=== PATIENT | female | born 1960 | race Two or more races ===

== ENCOUNTER 2016-12-21 15:35 | Emergency (ER) | payer SELFPAY ==
[2016-12-21 15:45] VITALS: BP 99/60; PULSE 88; TEMP 98.6; BMI 29.8
[2016-12-21] MEDS ORDERED: ACETAMINOPHEN 325 MG TABLET (FP) PO ONE (17:49)
[2016-12-21] MEDS ORDERED: MAG HYDROX/AL HYDROX/SIMETH 30 ML UNIT-DOSE CUP PO ONE (17:49)
[2016-12-21] MEDS ORDERED: ONDANSETRON 4 MG/2 ML VIAL IVPB ONE (17:49)
[2016-12-21] MEDS ORDERED: SODIUM CHLORIDE 1,000 ML IV STA (17:49)
[2016-12-21] MEDS ORDERED: FAMOTIDINE 20 MG/50 ML IVPB 50 ML IVPB ONE ×2 (17:49→18:10)
[2016-12-21] MEDS ORDERED: LOPERAMIDE HCL 2 MG CAPSULE PO ONE (17:50)
[2016-12-21] MEDS ORDERED: ACETAMINOPHEN 325 MG TABLET (FP) ONE (18:09)
[2016-12-21] MEDS ORDERED: MAG HYDROX/AL HYDROX/SIMETH 30 ML UNIT-DOSE CUP ONE (18:10)
[2016-12-21] MEDS ORDERED: ONDANSETRON 4 MG/2 ML VIAL ONE (18:10)
[2016-12-21] MEDS ORDERED: LOPERAMIDE HCL 2 MG CAPSULE ONE (18:10)
--- NOTE | 2016-12-21 18:11 | PDOC ---
History of Present Illness - General History Source: Patient Exam Limitations: No Limitations - History of Present Illness Initial Comments: 12/21/16 18:23 The patient is a 56 year old female presenting with her family, with a significant past medical history of hypothyroidism, GERD and migraine/headaches , who presents to the emergency department with fever, abdominal pain and diarrhea for the last couple of days. She reports that her abdominal pain is localized in the epigastric region, ranging from mild to moderate, without radiation or modifying factors. She states that her fever has been as high as 101.0 degrees F. The patient denies chest pain, shortness of breath, headache and dizziness. Denies chills, nausea, vomit and constipation. Denies dysuria, frequency, urgency and hematuria. Allergies: None Past surgical history: None reported Social history: No alcohol, tobacco or drug use reported <Nirav Rosenberg - Last Filed: 12/21/16 18:20> <Juaquin Cuevas - Last Filed: 12/21/16 19:45> - General Chief Complaint: Pain Stated Complaint: ABD PAIN Time Seen by Provider: 12/21/16 17:40 Past History <Nirav Rosenberg - Last Filed: 12/21/16 18:20> - Past Medical History Anemia: No Diabetes: No GI Disorders: Yes (GASTRITIS) HTN: No Hypercholesterolemia: No Seizures: Yes (HYPO) - Surgical History Abdominal Surgery: No - Family Disease History Family Disease History: Other: Mother (Migraines) - Psycho/Social/Smoking Cessation Hx Anxiety: No Suicidal Ideation: No Smoking Status: No Smoking History: Never smoked Have you smoked in the past 12 months: No Number of Cigarettes Smoked Daily: 0 Information on smoking cessation initiated: No Hx Alcohol Use: No Drug/Substance Use Hx: No Substance Use Type: None <Juaquin Cuevas - Last Filed: 12/21/16 19:45> - Past Medical History Allergies/Adverse Reactions: Allergies Allergy/AdvReac Type Severity Reaction Status Date / Time No Known Allergies Allergy Verified 12/21/16 15:42 Home Medications: Ambulatory Orders Levothyroxine [Synthroid -] 88 mcg PO DAILY 03/25/15 Acetaminophen [Tylenol] 650 mg PO Q4H PRN #20 tablet 12/21/16 Loperamide HCl [Imodium -] 2 mg PO Q8H PRN #21 capsule 12/21/16 Mag Hydrox/Al Hydrox/Simeth [Mylanta Suspension -] 30 ml PO Q6H PRN #1 bottle Ondansetron HCl [Zofran] 4 mg PO Q6H PRN #12 tablet 12/21/16 Review of Systems - Review of Systems Able to Perform ROS?: Yes Comments:: 12/21/16 18:24 GENERAL/CONSTITUTIONAL: No fever or chills. No weakness. HEAD, EYES, EARS, NOSE AND THROAT: No change in vision. No ear pain or discharge. No sore throat. CARDIOVASCULAR: No chest pain or shortness of breath RESPIRATORY: No cough, wheezing, or hemoptysis. GASTROINTESTINAL: (+) Abdominal pain and diarrhea. No nausea, vomiting or constipation. GENITOURINARY: No dysuria, frequency, or change in urination. MUSCULOSKELETAL: No joint or muscle swelling or pain. No neck or back pain. SKIN: No rash NEUROLOGIC: No headache, vertigo, loss of consciousness, or change in strength/ sensation. ENDOCRINE: No increased thirst. No abnormal weight change HEMATOLOGIC/LYMPHATIC: No anemia, easy bleeding, or history of blood clots. ALLERGIC/IMMUNOLOGIC: No hives or skin allergy. <Nirav Rosenberg - Last Filed: 12/21/16 18:20> *Physical Exam - Vital Signs Last Vital Signs Temp Pulse Resp BP Pulse Ox 98.6 F 88 18 99/60 100 12/21/16 15:44 12/21/16 15:44 12/21/16 15:44 12/21/16 15:44 12/21/16 15:44 - Physical Exam Comments: 12/21/16 18:25 GENERAL: Awake, alert, and fully oriented, in no acute distress HEAD: No signs of trauma, normocephalic, atraumatic EYES: PERRLA, EOMI, sclera anicteric, conjunctiva clear ENT: Auricles normal inspection, hearing grossly normal, nares patent, oropharynx clear without exudates. (+) Dry mucosa NECK: Normal ROM, supple, no lymphadenopathy, JVD, or masses LUNGS: No distress, speaks full sentences, clear to auscultation bilaterally HEART: Regular rate and rhythm, normal S1 and S2, no murmurs, rubs or gallops, peripheral pulses normal and equal bilaterally. ABDOMEN: (+) Left upper quadrant tenderness to palpation. Soft, normoactive bowel sounds. No guarding, no rebound. No masses EXTREMITIES: Normal inspection, Normal range of motion, no edema. No clubbing or cyanosis. NEUROLOGICAL: Cranial nerves II through XII grossly intact. Normal speech, normal gait, no focal sensorimotor deficits SKIN: Warm, Dry, normal turgor, no rashes or lesions noted. <Nirav Rosenberg - Last Filed: 12/21/16 18:20> - Vital Signs Last Vital Signs Temp Pulse Resp BP Pulse Ox 98.6 F 88 18 99/60 100 12/21/16 15:44 12/21/16 15:44 12/21/16 15:44 12/21/16 15:44 12/21/16 15:44 <Juaquin Cuevas - Last Filed: 12/21/16 19:45> ED Treatment Course - LABORATORY CBC & Chemistry Diagram: 12/21/16 18:24 12/21/16 18:24 <Juaquin Cuevas - Last Filed: 12/21/16 19:45> Medical Decision Making - Medical Decision Making 12/21/16 18:53 A portion of this note was documented by scribe services under my direction. I have reviewed the details of the note, within reason, and agree with the documentation with the following case summary and management plan written by me. Patient treated in the ED. Nursing notes are reviewed and incorporated into the medical decision-making. Vital signs reviewed. Peripheral IV access obtained by the nurse, laboratory studies are drawn and sent, reviewed and interpreted by myself. Vital Signs Temp Pulse Resp BP Pulse Ox 98.6 F 88 18 99/60 100 12/21/16 15:44 12/21/16 15:44 12/21/16 15:44 12/21/16 15:44 12/21/16 15:44 56-year-old female with history of hypothyroid is a presents with GI symptoms. The patient has sick contacts were sister had a GI upset. Since yesterday, patient's been complaining about multiple episodes of diarrhea and left upper quadrant abdominal pain. Reports a low-grade temperature 101 degrees. Denies nausea, vomiting. I suspect the patient has gastritis. We'll obtain labs, give IV fluids and treat symptoms and reassess. If symptoms are better and workup is unremarkable, we'll discharge with PMD follow-up. 12/21/16 19:42 Pt reports feeling significantly better with the medications. 12/21/16 19:42 If labs are unremarkable, pt can be discharged. 12/21/16 19:45 Case signed out to DR. Mensah for further management and disposition. <Juaquin Cuevas - Last Filed: 12/21/16 19:45> *DC/Admit/Observation/Transfer - Attestations Scribe Attestion: 12/21/16 18:25 Documentation prepared by Nirav Rosenberg, acting as medical customer service representative for Juaquin Cuevas MD <Nirav Rosenberg - Last Filed: 12/21/16 18:20> - Discharge Dispostion Admit: No <Juaquin Cuevas - Last Filed: 12/21/16 19:45> Diagnosis at time of Disposition: Gastroenteritis - Discharge Dispostion Condition at time of disposition: Improved - Prescriptions Prescriptions: Loperamide HCl [Imodium -] 2 mg PO Q8H PRN #21 capsule PRN Reason: Diarrhea Mag Hydrox/Al Hydrox/Simeth [Mylanta Suspension -] 30 ml PO Q6H PRN #1 bottle PRN Reason: Abdominal Pain Acetaminophen [Tylenol] 650 mg PO Q4H PRN #20 tablet PRN Reason: Pain/fever Ondansetron HCl [Zofran] 4 mg PO Q6H PRN #12 tablet PRN Reason: Nausea - Patient Instructions Printed Discharge Instructions: DI for Viral Gastroenteritis -- Adult Additional Instructions: Please drink plenty of fluids and rest. Take the medications as prescribed. It may take several days before your symptoms improve. Follow up with your doctor. Print Language: KYRGYZ
[2016-12-21 18:35] LABS: BASOPHIL 0.3 % (0-2.0); EOSINOPHIL 0.5 % (0-4.5); MCH 29.9 pg (25.7-33.7); MCHC 33.9 g/dl (32.0-36.0); MEAN CELL VOLUME 88.2 fl (80-96); MEAN PLT VOLUME 10.5 fl (7.5-11.1); NEUTROPHILS 91.2 % (42.8-82.8); PLATELET COUNT 126 K/MM3 (134-434); WHITE BLOOD COUNT 9.2 K/mm3 (4.0-10.0)
[2016-12-21 21:01] LABS: URINE APPEARANCE CLEAR; URINE BILIRUBIN NEGATIVE (NEGATIVE); URINE BLOOD 2+ (NEGATIVE); URINE COLOR DKYELLOW; URINE GLUCOSE (UA) NEGATIVE (NEGATIVE); URINE KETONE NEGATIVE (NEGATIVE); URINE LEUK ESTERASE TRACE (NEGATIVE); URINE NITRITE NEGATIVE (NEGATIVE); URINE PROTEIN 1+ (NEGATIVE); URINE UROBILINOGEN NEGATIVE E.U./dl (0.2-1.0)
[2016-12-21 21:06] LABS: GRANULAR CASTS 5 /lpf; URINE HYALINE CAST 134 /lpf; URINE MUCUS MANY; URINE RBC 7 /hpf (0-3); URINE WBC 7 /hpf (3-5)
[2016-12-21] MEDS ORDERED: KETOROLAC TROMETHAMINE 30 MG/1 ML VIAL IVPUSH ONE (22:26)
[2016-12-21] MEDS ORDERED: KETOROLAC TROMETHAMINE 30 MG/1 ML VIAL ONE (22:27)
[2016-12-21 23:21] LABS: ALBUMIN 4.1 g/dl (3.4-5.0); ANION GAP 14 (8-16); CALCIUM 8.5 mg/dL (8.5-10.1); CO2 18 mmol/L (21-32); GLUCOSE,RANDOM 146 mg/dL (74-106)
[2016-12-21 23:24] LABS: ALK PHOS 93 U/L (45-117); BILIRUBIN,TOTAL 0.8 mg/dL (0.2-1.0); COCKROFT - GAULT 87.7795; CREATININE 0.8 mg/dL (0.55-1.02); SGOT/AST 54 U/L (15-37); SGPT/ALT 87 U/L (12-78); TOT PROT 7.7 g/dl (6.4-8.2)
--- NOTE | 2016-12-22 02:40 | PDOC ---
*Physical Exam - Vital Signs Last Vital Signs Temp Pulse Resp BP Pulse Ox 98.6 F 88 18 99/60 100 12/21/16 15:44 12/21/16 15:44 12/21/16 15:44 12/21/16 15:44 12/21/16 15:44 <LewNirav - Last Filed: 12/22/16 02:39> - Vital Signs Last Vital Signs Temp Pulse Resp BP Pulse Ox 98.6 F 88 18 99/60 100 12/21/16 15:44 12/21/16 15:44 12/21/16 15:44 12/21/16 15:44 12/21/16 15:44 <Pily Williamson - Last Filed: 12/22/16 02:41> ED Treatment Course - LABORATORY CBC & Chemistry Diagram: 12/21/16 18:24 12/21/16 20:52 - ADDITIONAL ORDERS Additional order review: Laboratory Results 12/21/16 12/21/16 12/21/16 20:54 20:52 18:24 Sodium 140 Cancelled Potassium 4.0 Cancelled Chloride 108 H Cancelled Carbon Dioxide 18 L D Cancelled Anion Gap 14 Cancelled BUN 19 H D Cancelled Creatinine 0.8 Cancelled Creat Clearance w eGFR > 60 Cancelled Random Glucose 146 H Cancelled Calcium 8.5 Cancelled Total Bilirubin 0.8 D Cancelled AST 54 H Cancelled ALT 87 H Cancelled Alkaline Phosphatase 93 Cancelled Total Protein 7.7 Cancelled Albumin 4.1 Cancelled Lipase 174 Cancelled Urine Color Dkyellow Urine Appearance Clear Urine pH 5.0 D Ur Specific [place] 1.025 Urine Protein 1+ H Urine Glucose (UA) Negative Urine Ketones Negative Urine Blood 2+ H Urine Nitrite Negative Urine Bilirubin Negative Urine Urobilinogen Negative Ur Leukocyte Esterase Trace H Urine RBC 7 Urine WBC 7 Ur Epithelial Cells Rare Hyaline Casts 134 Granular Casts 5 Urine Mucus Many 12/21/16 18:24 RBC 5.09 MCV 88.2 MCHC 33.9 RDW 13.0 MPV 10.5 Neutrophils % 91.2 H D Lymphocytes % 4.2 L D Monocytes % 3.8 Eosinophils % 0.5 Basophils % 0.3 - RADIOLOGY Radiology Studies Ordered: Category Date Time Status ABDOMEN US -LIMITED [US] Stat Ultrasound 12/22/16 23:48 Taken - Medications Given in the ED: ED Medications Discontinued Medications Generic Name Dose Route Start Last Admin Trade Name Trin[place] PRN Reason Stop Dose Admin Acetaminophen 650 mg 12/21/16 17:49 12/21/16 18:25 Tylenol - PO 12/21/16 17:50 650 mg ONCE ONE Administration Al Hydroxide/Mg Hydroxide 30 ml 12/21/16 17:49 12/21/16 18:25 Mylanta Oral Suspension - PO 12/21/16 17:50 30 ml ONCE ONE Administration Famotidine/Sodium Chloride 50 mls @ 100 mls/hr 12/21/16 17:49 12/21/16 18:25 Pepcid 20 Mg Premixed Ivpb - IVPB 12/21/16 18:18 100 mls/hr ONCE ONE Administration Sodium Chloride 1,000 mls @ 1,000 mls/hr 12/21/16 17:49 12/21/16 18:25 Normal Saline - IV 12/21/16 18:48 1,000 mls/hr ASDIR STA Administration Ketorolac Tromethamine 30 mg 12/21/16 22:26 12/21/16 22:39 Toradol Injection - IVPUSH 12/21/16 22:27 30 mg ONCE ONE Administration Loperamide HCl 4 mg 12/21/16 17:50 12/21/16 18:25 Imodium - PO 12/21/16 17:51 4 mg ONCE ONE Administration Ondansetron HCl 4 mg 12/21/16 17:49 12/21/16 18:25 Zofran Injection IVPB 12/21/16 17:50 4 mg ONCE ONE Administration <Nirav Mensah - Last Filed: 12/22/16 02:39> - LABORATORY CBC & Chemistry Diagram: 12/21/16 18:24 12/21/16 20:52 - ADDITIONAL ORDERS Additional order review: Laboratory Results 12/21/16 12/21/16 12/21/16 20:54 20:52 18:24 Sodium 140 Cancelled Potassium 4.0 Cancelled Chloride 108 H Cancelled Carbon Dioxide 18 L D Cancelled Anion Gap 14 Cancelled BUN 19 H D Cancelled Creatinine 0.8 Cancelled Creat Clearance w eGFR > 60 Cancelled Random Glucose 146 H Cancelled Calcium 8.5 Cancelled Total Bilirubin 0.8 D Cancelled AST 54 H Cancelled ALT 87 H Cancelled Alkaline Phosphatase 93 Cancelled Total Protein 7.7 Cancelled Albumin 4.1 Cancelled Lipase 174 Cancelled Urine Color Dkyellow Urine Appearance Clear Urine pH 5.0 D Ur Specific [place] 1.025 Urine Protein 1+ H Urine Glucose (UA) Negative Urine Ketones Negative Urine Blood 2+ H Urine Nitrite Negative Urine Bilirubin Negative Urine Urobilinogen Negative Ur Leukocyte Esterase Trace H Urine RBC 7 Urine WBC 7 Ur Epithelial Cells Rare Hyaline Casts 134 Granular Casts 5 Urine Mucus Many 12/21/16 18:24 RBC 5.09 MCV 88.2 MCHC 33.9 RDW 13.0 MPV 10.5 Neutrophils % 91.2 H D Lymphocytes % 4.2 L D Monocytes % 3.8 Eosinophils % 0.5 Basophils % 0.3 - RADIOLOGY Radiograph Interpretation: 12/22/16 02:41 EXAM: Ultrasound abdomen limited, right upper quadrant Reviewed by Imaging vehicle fuel systems converter: FINDINGS: The liver is fatty, without mass or biliary duct dilation. The gallbladder is normal. The CBD is not dilated and measures4 millimeters in diameter. Right kidney measures 10.2centimeters in length and is unremarkable. The visualized aorta and IVC are normal. Pancreas is mostly obscured, but appears grossly normal. IMPRESSION: Fatty liver. - Medications Given in the ED: ED Medications Discontinued Medications Generic Name Dose Route Start Last Admin Trade Name Freq PRN Reason Stop Dose Admin Acetaminophen 650 mg 12/21/16 17:49 12/21/16 18:25 Tylenol - PO 12/21/16 17:50 650 mg ONCE ONE Administration Al Hydroxide/Mg Hydroxide 30 ml 12/21/16 17:49 12/21/16 18:25 Mylanta Oral Suspension - PO 12/21/16 17:50 30 ml ONCE ONE Administration Famotidine/Sodium Chloride 50 mls @ 100 mls/hr 12/21/16 17:49 12/21/16 18:25 Pepcid 20 Mg Premixed Ivpb - IVPB 12/21/16 18:18 100 mls/hr ONCE ONE Administration Sodium Chloride 1,000 mls @ 1,000 mls/hr 12/21/16 17:49 12/21/16 18:25 Normal Saline - IV 12/21/16 18:48 1,000 mls/hr ASDIR STA Administration Ketorolac Tromethamine 30 mg 12/21/16 22:26 12/21/16 22:39 Toradol Injection - IVPUSH 12/21/16 22:27 30 mg ONCE ONE Administration Loperamide HCl 4 mg 12/21/16 17:50 12/21/16 18:25 Imodium - PO 12/21/16 17:51 4 mg ONCE ONE Administration Ondansetron HCl 4 mg 12/21/16 17:49 12/21/16 18:25 Zofran Injection IVPB 12/21/16 17:50 4 mg ONCE ONE Administration <Pily Williamson - Last Filed: 12/22/16 02:41> *DC/Admit/Observation/Transfer - Discharge Dispostion Admit: No <Nirav Mensah - Last Filed: 12/22/16 02:39> <Pily Williamson - Last Filed: 12/22/16 02:41> Diagnosis at time of Disposition: Gastroenteritis - Discharge Dispostion Disposition: HOME Condition at time of disposition: Improved - Prescriptions Prescriptions: Loperamide HCl [Imodium -] 2 mg PO Q8H PRN #21 capsule PRN Reason: Diarrhea Mag Hydrox/Al Hydrox/Simeth [Mylanta Suspension -] 30 ml PO Q6H PRN #1 bottle PRN Reason: Abdominal Pain Acetaminophen [Tylenol] 650 mg PO Q4H PRN #20 tablet PRN Reason: Pain/fever Ondansetron HCl [Zofran] 4 mg PO Q6H PRN #12 tablet PRN Reason: Nausea - Referrals - Patient Instructions Printed Discharge Instructions: DI for Viral Gastroenteritis -- Adult Additional Instructions: Please drink plenty of fluids and rest. Take the medications as prescribed. It may take several days before your symptoms improve. Follow up with your doctor. Print Language: NORWEGI[place] - Post Discharge Activity
--- NOTE | 2016-12-24 15:42 | PDOC ---
Patient Follow-up (Call Back) - Post ED Follow - Up Condition at time of discharge: Improved Disposition at time of original discharge: HOME Reason for Call Back: Abnwl. Microbiology (urine culture + for streptococcus bovis sensitive to levaquin 250 mg daily x 3 days, left message for pt. to call here misael)
== END 2016-12-22 03:15 | disposition home or self-care (01) ==
LOC: JER 15:35
PROC: 3E0333Z Introduction of Anti-inflammatory into Peripheral Vein, Percutaneous Approach (ICD-10-PCS; principal; 2016-12-21)
PROC: 3E033GC Introduction of Other Therapeutic Substance into Peripheral Vein, Percutaneous Approach (ICD-10-PCS; 2016-12-21)
DX: K52.9 Noninfective gastroenteritis and colitis, unspecified (principal); G43.909 Migraine, unspecified, not intractable, without status migrainosus; K21.9 Gastro-esophageal reflux disease without esophagitis; E03.9 Hypothyroidism, unspecified
CPT/HCPCS: 36415; 76705-TC; 80053; 81003; 81015; 83690; 85025; 87086; 87186; 99282-25

== ENCOUNTER 2018-04-04 11:12 | Emergency (ER) | payer SELFPAY ==
[2018-04-04 11:21] VITALS: BMI 27.3
--- NOTE | 2018-04-04 11:56 | PDOC ---
History of Present Illness - General History Source: Patient Exam Limitations: No Limitations <Bhaskar Pablo - Last Filed: 04/04/18 13:05> - History of Present Illness Initial Comments: The patient is a 57-year-old Yi-speaking female with a PMHx of newly diagnosed diabetes, migraines, hypothyroidism, hypercholesterolemia, and GERD, who presents with a right-sided headache, chest pressure, and shortness of breath. The patient states that she had a right-sided headache after an argument with her daughter. She called her PCP who referred to to the ED since the offices are closed for the holiday. She states that her headache began 3 days ago and describes it as as right-sided, gradual onset, rates pain 10/10. She states that she has had similar headaches in the past and states that she usually gets them after an argument or some other stressor. She states that she usually takes acetaminophen for her migraines but did not take any today. She took some Motrin yesterday with initial relief but states that the pain came back after the medicine wore off. She also endorses 8 days of shortness of breath and chest pressure that she states is worse with deep inspiration and when laying down, rates pain 7/10. She also notes recent blurry vision and rhinorrhea. She states that she has been experiencing numbness and tingling for a couple of months. She states that today she took some Nexium for her acid reflux but has not taken her Metformin today for her newly diagnosed diabetes. She denies any nausea, vomiting, hemoptysis, fevers, diaphoresis, back pain, leg swelling, or dysuria, PCP: Dr. Chiki Richmond Surgical Hx: hysterectomy Allergies: NKDA <Paulina Snyder - Last Filed: 04/04/18 13:24> - General Chief Complaint: Headache Stated Complaint: SENT BY PCP,CHEST PAIN,BLOOD SUGAR Time Seen by Provider: 04/04/18 11:33 Past History - Past Medical History Anemia: No COPD: No Diabetes: Yes GI Disorders: Yes (GASTRITIS) HTN: No Hypercholesterolemia: No Seizures: Yes (HYPO) - Surgical History Abdominal Surgery: No - Family Disease History Family Disease History: Other: Mother (Migraines) - Suicide/Smoking/Psychosocial Hx Smoking Status: No Smoking History: Never smoked Have you smoked in the past 12 months: No Number of Cigarettes Smoked Daily: 0 Hx Alcohol Use: No Drug/Substance Use Hx: No Substance Use Type: None <BevBishopBhaskar - Last Filed: 04/04/18 13:05> <Paulina Snyder - Last Filed: 04/04/18 13:24> - Past Medical History Allergies/Adverse Reactions: Allergies Allergy/AdvReac Type Severity Reaction Status Date / Time No Known Allergies Allergy Verified 04/04/18 11:18 Home Medications: Ambulatory Orders Levothyroxine [Synthroid -] 88 mcg PO DAILY 03/25/15 Acetaminophen [Tylenol] 650 mg PO Q4H PRN #20 tablet 12/21/16 Review of Systems - Review of Systems Comments:: CONSTITUTIONAL: No reported: Fever, Chills, Diaphoresis, Generalized Weakness, Malaise, Loss of Appetite HEENT: Reported: Rhinnorhea No reported: Throat Pain, Throat Swelling, Difficulty Swallowing, Mouth Swelling , Ear Pain, Eye Pain, Visual Changes CARDIOVASCULAR: Reported: Pleuritic Chest Pressure No reported: Chest Pain, Syncope, Palpitations, Irregular Heart Rate, Lightheadedness, Peripheral Edema RESPIRATORY: Reported: Orthopnea, Shortness of Breath No reported: Cough, SOB with Exertion, Wheezing, Stridor, Hemoptysis GASTROINTESTINAL: No reported: Abdominal pain, Abdominal Distension, Nausea, Vomiting, Diarrhea, Constipation, Melena, Hematochezia GENITOURINARY: No reported: Dysuria, Frequency, Urgency, Hesitancy, Flank Pain, Genital Pain MUSCULOSKELETAL: No reported: Myalgia, Arthralgia, Joint Swelling, Back pain, SKIN: No reported: Rash, Itching, Pallor HEMEATOLOGIC/IMMUNOLOGIC: No reported: Easy Bleeding, Easy Bruising, Lymphadenopathy, Frequent infections ENDOCRINE: No reported: Unexplained Weight Gain, Unexplained Weight Loss, Heat Intolerance , Cold Intolerance NEUROLOGIC: Reported: Headache, Paresthesias in hands and feet. No reported: Focal Weakness, Vertigo, Lightheadedness, Unsteady Gait, Seizure, Mental Status Changes, Incontinence PSYCHIATRIC: No reported: Anxiety, Depression. <Paulina Snyder - Last Filed: 04/04/18 13:24> *Physical Exam - Vital Signs Last Vital Signs Temp Pulse Resp BP Pulse Ox 98.1 F 81 18 143/80 100 04/04/18 11:18 04/04/18 11:18 04/04/18 11:18 04/04/18 11:18 04/04/18 11:18 <Bhaskar Pablo - Last Filed: 04/04/18 13:05> - Vital Signs Last Vital Signs Temp Pulse Resp BP Pulse Ox 98.1 F 81 18 143/80 99 04/04/18 11:18 04/04/18 11:18 04/04/18 11:18 04/04/18 11:18 04/04/18 12:13 - Physical Exam Comments: GENERAL: The patient is awake, alert, and fully oriented, Nontoxic - in no acute distress. HEAD: Normocephalic, atraumatic. EYES: extraocular movements intact, sclera anicteric, conjunctiva clear. ENT: Normal voice, Moist mucous membranes. NECK: Normal range of motion, supple LUNGS: Breath sounds equal, clear to auscultation bilaterally. No wheezes, no rhonchi, no rales. HEART: Regular rate and rhythm, without murmur, rub or gallop. ABDOMEN: Soft, nontender, No guarding, no rebound.No CVA tenderness EXTREMITIES: Normal range of motion, no edema. No cyanosis. No erythema, or tenderness. NEUROLOGICAL: No facial assymetry, Normal speech, PSYCH: Normal mood, normal affect. SKIN: Warm, Dry, normal turgor. <Paulina Snyder - Last Filed: 04/04/18 13:24> ED Treatment Course - LABORATORY CBC & Chemistry Diagram: 04/04/18 12:00 04/04/18 12:00 <Bhaskar Pablo - Last Filed: 04/04/18 13:05> - LABORATORY CBC & Chemistry Diagram: 04/04/18 12:00 04/04/18 12:00 - Medications Given in the ED: ED Medications Discontinued Medications Generic Name Dose Route Start Last Admin Trade Name Agustinq PRN Reason Stop Dose Admin Acetaminophen 650 mg 04/04/18 11:59 04/04/18 12:04 Tylenol - PO 04/04/18 12:00 650 mg ONCE ONE Administration Metoclopramide HCl 10 mg 04/04/18 11:57 04/04/18 12:04 Reglan Injection - IVPUSH 04/04/18 11:58 10 mg ONCE ONE Administration <Paulina Snyder - Last Filed: 04/04/18 13:24> Medical Decision Making - Medical Decision Making 04/04/18 11:56 57y F hx of htn, dm, presents with primary complaint of headache x 3 days after having an argument, headache was gradual onset, intermitetnt, improves with motrin yetserday but worsened today. no associated current vision changes, numbness/tingling/weaknes, trauma, neck pain, n/v. Pt also endorses some mild chest tightness worse when she is laying down deines significant orthopnea, head , leg swelling., hemop[tysis. on exam p[t well appearing in no distress cardiac: rrr, no mrg pulm: cta bl abd soft nontender, nonidstend, no rebound/guarding ext: no edema neuro: movin gall 4 ext spontaneously and symmetrically, strenth intact symmetrically, sensation intact suspect migraine headache vs tension headache will give reglan will ck labs and ekg to r/o acs, metabolic dernagement will reassess A portion of this note was documented by scribe services under my direction. I have reviewed the details of the note, within reason, and agree with the documentation with the following case summary and management plan written by me 04/04/18 13:05 pt feeling improved labs reviewed dominique ldc with pmd fu return precautions were discussed I discussed the physical exam findings, ancillary test results and final diagnoses with the patient. I answered all of the patient's questions. The patient was satisfied with the care received and felt comfortable with the discharge plan and treatment plan. The patient will call their primary care physician within 24 hours to arrange follow-up and will return to the Emergency Department with any new, persistent or worsening symptoms. <Bhaskar Pablo - Last Filed: 04/04/18 13:05> *DC/Admit/Observation/Transfer - Discharge Dispostion Decision to Admit order: No <Bhaskar Pablo - Last Filed: 04/04/18 13:05> - Attestations Scribe Attestion: 04/04/18 12:37 Documentation prepared by Paulina Snyder, acting as medical instrument technician for Bhaskar Pablo MD. <Paulina Snyder - Last Filed: 04/04/18 13:24> Diagnosis at time of Disposition: Migraine headache Qualifiers: Migraine type: with aura Status migrainosus presence: without status migrainosus Intractability: not intractable Qualified Code(s): G43.109 - Migraine with aura, not intractable, without status migrainosus - Discharge Dispostion Disposition: HOME Condition at time of disposition: Improved - Referrals Referrals: Chiki Richmond MD [Primary Care Provider] - - Patient Instructions Printed Discharge Instructions: DI for Migraine Additional Instructions: Regrese al servicio de urgencias de inmediato con CUALQUIER sntoma nuevo, persistente o que empeore incluyendo empeoramiento del dolor de nicole, cambios en la visin, entumecimiento / hormigueo / debilidad, nuseas y vmitos persistentes o cualquier otra inquietud. Asegrate de obtener un sueo e hidratacin adecuados. DEBE llamar y hacer un seguimiento con sanchez mdico maana para ian mayor evaluacin de timbo sntomas. Sanchez visita al departamento de emergencia no est completa sin un seguimiento con sanchez mdico para la reevaluacin. Los resultados fueron discutidos con usted. Asegrese de que sanchez mdico revise los resultados de sanchez evaluacin de emergencia. Return to the emergency department immediately with ANY new, persistent or worsening symptoms including worsening headache, vision changes, numbness/ tingling/weakness, persistent nausea and vomiting or any other concerns. Make sure you are getting adaqute sleep and hydration. You MUST call and follow up with your doctor tomorrow for further evaluation of your symptoms. Your emergency department visit is not complete without a followup with your doctor for reevaluation. Results were discussed with you. Please make sure your doctor reviews the results of your emergency evaluation. Print Language: KHMER - Post Discharge Activity
[2018-04-04] MEDS ORDERED: SODIUM CHLORIDE 1,000 ML IV ONE (11:57)
[2018-04-04] MEDS ORDERED: METOCLOPRAMIDE HCL INJECTION 10 MG/2 ML VIAL IVPUSH ONE (11:57)
[2018-04-04] MEDS ORDERED: ACETAMINOPHEN 325 MG TABLET (FP) PO ONE (11:59)
[2018-04-04] MEDS ORDERED: METOCLOPRAMIDE HCL INJECTION 10 MG/2 ML VIAL ONE (12:03)
[2018-04-04] MEDS ORDERED: ACETAMINOPHEN 325 MG TABLET (FP) ONE (12:03)
[2018-04-04 12:18] LABS: BASO % 0.8 % (0-2.0); EOS % 2.7 % (0-4.5); HEMATOCRIT 40.5 % (32.4-45.2); HEMOGLOBIN 13.9 GM/dL (10.7-15.3); LYMPH % 34.7 % (8-40); MCH 30.6 pg (25.7-33.7); MCHC 34.2 g/dl (32.0-36.0); MEAN CELL VOLUME 89.4 fl (80-96); MEAN PLT VOLUME 10.2 fl (7.5-11.1); MONO % 5.3 % (3.8-10.2); NEUT % 56.5 % (42.8-82.8); PLATELET COUNT 96 K/MM3 (134-434); RBC 4.53 M/mm3 (3.60-5.2); RDW 12.8 % (11.6-15.6); WHITE BLOOD COUNT 4.4 K/mm3 (4.0-10.0)
[2018-04-04 12:45] LABS: ALBUMIN 3.8 g/dl (3.4-5.0); ALK PHOS 103 U/L (45-117); ANION GAP 9 MMOL/L (8-16); BILIRUBIN,TOTAL 0.7 mg/dL (0.2-1.0); BLOOD UREA NITROGEN 10 mg/dL (7-18); CALCIUM 8.5 mg/dL (8.5-10.1); CHLORIDE 106 mmol/L (98-107); CO2 26 mmol/L (21-32); CREATININE 0.7 mg/dL (0.55-1.02); GLUCOSE,RANDOM 158 mg/dL (74-106); POTASSIUM 3.9 mmol/L (3.5-5.1); SGOT/AST 49 U/L (15-37); SGPT/ALT 57 U/L (12-78); SODIUM 141 mmol/L (136-145); TOT PROT 7.4 g/dl (6.4-8.2)
[2018-04-04 13:27] VITALS: BP 135/78; PULSE 78; TEMP 98.6
--- NOTE | 2018-04-05 16:31 | EKG ---
Test Reason : Blood Pressure : / mmHG Vent. Rate : 081 BPM Atrial Rate : 081 BPM P-R Int : 136 ms QRS Dur : 068 ms QT Int : 366 ms P-R-T Axes : 032 028 042 degrees QTc Int : 425 ms NORMAL SINUS RHYTHM NORMAL ECG WHEN COMPARED WITH ECG OF 16-MAR-2016 11:32, NO SIGNIFICANT CHANGE WAS FOUND Confirmed by Juan Manuel Adrian ([id number]) on 04/05/2018 4:31:11 PM Referred By: Confirmed By:Juan Manuel Adrian
== END 2018-04-04 13:27 | disposition home or self-care (01) ==
LOC: JER 11:12
PROC: 3E033GC Introduction of Other Therapeutic Substance into Peripheral Vein, Percutaneous Approach (ICD-10-PCS; principal; 2018-04-04)
DX: G43.109 Migraine with aura, not intractable, without status migrainosus (principal); E11.9 Type 2 diabetes mellitus without complications; Z79.84 Long term (current) use of oral hypoglycemic drugs; E03.9 Hypothyroidism, unspecified; K21.9 Gastro-esophageal reflux disease without esophagitis
CPT/HCPCS: 36415; 71045-TC-FY; 80053; 82550; 84484; 85025; 93005; 93010; 99284-25; J7030

== ENCOUNTER 2019-08-21 13:17 | Emergency (ER) | payer SELFPAY ==
[2019-08-21 13:29] VITALS: BMI 30.4
[2019-08-21] MEDS ORDERED: ONDANSETRON 4 MG/2 ML VIAL IVPUSH ONE (13:29)
[2019-08-21] MEDS ORDERED: SODIUM CHLORIDE 1,000 ML IV STA ×2 (13:29→14:38)
--- NOTE | 2019-08-21 13:29 | PDOC ---
Rapid Medical Evaluation Time Seen by Provider: 08/21/19 13:26 Medical Evaluation: Allergies Allergy/AdvReac Type Severity Reaction Status Date / Time No Known Allergies Allergy Verified 08/21/19 13:26 08/21/19 13:29 I performed a brief in-person evaluation of this patient. 58-year-old female with hypothyroidism, pre-diabetes presenting with 9/10 headache, dizziness, and vomiting this morning. Actively vomiting in triage. Pertinent physical exam findings: Alert, oriented. No focal neurologic deficits. No abd tenderness. I have ordered the following EKG Cardiac labs IV hydration and Reglan for symptomatic relief Patient to proceed to ED for further evaluation. 08/21/19 13:30 Discharge Disposition - Diagnosis Dizziness - Referrals - Patient Instructions - Post Discharge Activity
[2019-08-21] MEDS ORDERED: METOCLOPRAMIDE HCL INJECTION 10 MG/2 ML VIAL IVPUSH ONE (13:32)
[2019-08-21] MEDS ORDERED: METOCLOPRAMIDE HCL INJECTION 10 MG/2 ML VIAL ONE (14:30)
[2019-08-21] MEDS ORDERED: KETOROLAC TROMETHAMINE 30 MG/1 ML VIAL IVPUSH ONE (14:51)
[2019-08-21 14:56] LABS: BASO % 0.5 % (0-2.0); EOS % 2.3 % (0-4.5); HEMATOCRIT 39.3 % (32.4-45.2); HEMOGLOBIN 13.3 GM/dL (10.7-15.3); LYMPH % 32.1 % (8-40); MCH 30.6 pg (25.7-33.7); MEAN CELL VOLUME 89.9 fl (80-96); MEAN PLT VOLUME 10.5 fl (7.5-11.1); MONO % 5.2 % (3.8-10.2); NEUT % 59.9 % (42.8-82.8); PLATELET COUNT 75 K/MM3 (134-434); RBC 4.37 M/mm3 (3.60-5.2); WHITE BLOOD COUNT 4.9 K/mm3 (4.0-10.0)
--- NOTE | 2019-08-21 14:57 | PDOC ---
History of Present Illness - General Chief Complaint: Lightheaded Stated Complaint: NAUSEOUS/DIZZNESS Time Seen by Provider: 08/21/19 13:26 History Source: Patient Exam Limitations: Clinical Condition - History of Present Illness Initial Comments: 08/21/19 14:52 Patient with past medical history of hypothyroidism on Synthroid and prediabetes on metformin presented with complaint of 3-day history of worsening frontal headaches and dizziness and one episode of vomiting this morning. Patient reported episode of vertigo symptoms few years ago but never had any symptoms since then. Denies blurry vision, change in vision, chest pain, palpitation, shortness of breath, diarrhea, abdominal pain. Patient reported headache and 9 out of 10 throbbing frontal headache. Patient has not taken anything for symptoms. Denies fevers, chills, weakness. Denies any other symptoms Is this a multiple visit Asthma Patient?: No Timing/Duration: other (3 days) Past History - Past Medical History Allergies/Adverse Reactions: Allergies Allergy/AdvReac Type Severity Reaction Status Date / Time No Known Allergies Allergy Verified 08/21/19 13:26 Home Medications: Ambulatory Orders Levothyroxine [Synthroid -] 88 mcg PO DAILY 03/25/15 Acetaminophen [Tylenol] 650 mg PO Q4H PRN #20 tablet 12/21/16 Butalb/Acetaminophen/Caffeine [Fioricet 50-300-40 mg Capsule] 1 each PO Q6H PRN #20 capsule 08/21/19 Meclizine HCl [Antivert -] 25 mg PO BID PRN 5 Days #10 tablet 08/21/19 Metformin HCl [Glucophage] 500 mg PO DAILY 08/21/19 Anemia: No COPD: No Diabetes: Yes GI Disorders: Yes (GASTRITIS) HTN: No Hypercholesterolemia: No Seizures: Yes (HYPO) Thyroid Disease: Yes (HYPO) - Surgical History Abdominal Surgery: No - Immunization History Immunization Up to Date: Yes - Psycho Social/Smoking Cessation Hx Smoking Status: No Smoking History: Never smoked Have you smoked in the past 12 months: No Number of Cigarettes Smoked Daily: 0 Hx Alcohol Use: No Drug/Substance Use Hx: No Substance Use Type: None Review of Systems - Review of Systems Able to Perform ROS?: Yes Is the patient limited Bur[place]ian proficient: No Constitutional: No: Chills, Fever, Malaise HEENTM: No: Symptoms Reported, See HPI, Eye Pain, Blurred Vision, Tearing, Recent change in vision, Double Vision, Cataracts, Ear Pain, Ocular Prothesis, Ear Discharge, Nose Pain, Nose Congestion, Tinnitus, Nose Bleeding, Hearing Loss , Throat Pain, Throat Swelling, Mouth Pain, Dental Problems, Difficulty Swallowing, Mouth Swelling, Other Respiratory: No: Symptoms reported, See HPI, Cough, Orthopnea, Shortness of Breath, SOB with Exertion, SOB at Rest, Stridor, Wheezing, Productive cough, Hemoptysis, Other Cardiac (ROS): No: Symptoms Reported, See HPI, Chest Pain, Edema, Irregular Heart Rate, Lightheadedness, Palpitations, Syncope, Chest Tightness, Other ABD/GI: Yes: Symptoms Reported, See HPI, Nausea, Vomiting. No: Abd. Pain w/ defecation, Blood Streaked Bowels, Constipated, Difficulty Swallowing, Poor Appetite, Poor Fluid Intake, Rectal Bleeding, Indigestion, Abdominal cramping : No: Symptoms Reported, Dysuria, Discharge, Frequency, Urgency Musculoskeletal: No: Symptoms Reported Integumentary: No: Symptoms Reported, Rash Neurological: Yes: Symptoms reported, See HPI, Headache, Dizziness. No: Numbness, Paresthesia, Tingling All Other Systems: Reviewed and Negative *Physical Exam - Vital Signs Last Vital Signs Temp Pulse Resp BP Pulse Ox 97.7 F 69 18 152/84 99 08/21/19 13:27 08/21/19 13:27 08/21/19 13:27 08/21/19 13:27 08/21/19 13:27 - Physical Exam 08/21/19 14:56 GENERAL: Well developed, well nourished. Awake and alert. No acute distress. HEENT: Normocephalic, atraumatic. PERRLA, EOMI. No conjunctival pallor. Sclera are non- icteric. Moist mucous membranes. Oropharynx is clear. NECK: Supple. Full ROM. No JVD. Carotid pulses 2+ and symmetric, without bruits. No thyromegaly. No lymphadenopathy. CARDIOVASCULAR: Regular rate and rhythm. No murmurs, rubs, or gallops. Distal pulses are 2+ and symmetric. PULMONARY: No evidence of respiratory distress. Lungs clear to auscultation bilaterally. No wheezing, rales or rhonchi. ABDOMINAL: Soft. Non-tender. Non-distended. No rebound or guarding. No organomegaly. Normoactive bowel sounds. MUSCULOSKELETAL Normal range of motion at all joints. No bony deformities or tenderness. No CVA tenderness. SKIN: Warm and dry. Normal capillary refill. No rashes. No jaundice. NEUROLOGICAL: Alert, awake, appropriate. Cranial nerves 2-12 intact. No deficits to light touch in face, upper extremities and lower extremities. No motor deficits in the in face, upper extremities and lower extremities. Normal speech. Gait is normal without ataxia. PSYCHIATRIC: Cooperative. Good eye contact. Appropriate mood and affect. General Appearance: Yes: Nourished, Appropriately Dressed. No: Apparent Distress ED Treatment Course - LABORATORY CBC & Chemistry Diagram: 08/21/19 11:20 08/21/19 11:20 - Medications Given in the ED: ED Medications Discontinued Medications Generic Name Dose Route Start Last Admin Trade Name Freq PRN Reason Stop Dose Admin Diphenhydramine HCl 12.5 mg 08/21/19 13:32 08/21/19 14:42 Benadryl Injection - IVPB 08/21/19 13:33 12.5 mg ONCE ONE Administration Sodium Chloride 1,000 mls @ 1,000 mls/hr 08/21/19 13:29 08/21/19 14:42 Normal Saline - IV 08/21/19 14:28 1,000 mls/hr ASDIR STA Administration Metoclopramide HCl 10 mg 08/21/19 13:32 08/21/19 14:42 Reglan Injection - IVPUSH 08/21/19 13:33 10 mg ONCE ONE Administration Ondansetron HCl 4 mg 08/21/19 13:29 08/21/19 14:42 Zofran Injection IVPUSH 08/21/19 13:30 Not Given ONCE ONE Medical Decision Making - Medical Decision Making 08/21/19 14:54 Patient with past medical history of hypothyroidism on Synthroid and prediabetes on metformin presented with complaint of 3-day history of worsening frontal headaches and dizziness and one episode of vomiting this morning. Patient reported episode of vertigo symptoms few years ago but never had any symptoms since then. Denies blurry vision, change in vision, chest pain, palpitation, shortness of breath, diarrhea, abdominal pain. Patient reported headache and 9 out of 10 throbbing frontal headache. Patient has not taken anything for symptoms. Denies fevers, chills, weakness. Denies any other symptoms Clinical exam unremarkable with normal neuro exam. Lungs clear to auscultation bilateral. Normal cardio exam. Patient symptoms likely vertigo versus less likely cardiogenic symptoms.. Cardiac profile lab ordered from triage and basic labs ordered from triage. Reglan 10 mg IV, normal saline 1 g IV and Benadryl 25 mg IV ordered from triage for migraine. We will add Toradol 30 mg to help with headache. Reassess after labs 08/21/19 17:18 Patient report complete resolve of headache and vertigo symptoms after IV hydration, Toradol and meclizine. CBC and cardiac profile unremarkable. Patient stable for discharge on outpatient treatment of vertigo and migraine headaches with neurology follow-up. Patient DC on Fioricet PRN for headache and meclizine for vertigo Discharge - Discharge Information Problems reviewed: Yes Clinical Impression/Diagnosis: Dizziness, Vertigo Migraine headache with aura Qualifiers: Status migrainosus presence: without status migrainosus Intractability: not intractable Qualified Code(s): G43.109 - Migraine with aura, not intractable, without status migrainosus Condition: Improved Disposition: HOME - Admission No - Additional Discharge Information Prescriptions: Butalb/Acetaminophen/Caffeine [Fioricet 50-300-40 mg Capsule] 1 each PO Q6H PRN #20 capsule PRN Reason: headACHE Meclizine HCl [Antivert -] 25 mg PO BID PRN 5 Days #10 tablet PRN Reason: vertigo - Follow up/Referral Referrals: Chiki Richmond MD [Primary Care Provider] - Sachin Sr MD [Staff Physician] - - Patient Discharge Instructions Patient Printed Discharge Instructions: DI for Migraine, DI for Vertigo Additional Instructions: Your blood work came back normal. Your symptoms likely caused by vertigo with headache. Take prescribed medication as prescribed for headache and vertigo. Increase fluid intake. Follow-up referred neurologist if symptoms persist for more than 3 days Print Language: LAO - Post Discharge Activity
[2019-08-21] MEDS ORDERED: KETOROLAC TROMETHAMINE 30 MG/1 ML VIAL ONE (14:58)
[2019-08-21 15:08] LABS: ALBUMIN 4.2 g/dl (3.4-5.0); ALK PHOS 100 U/L (45-117); ANION GAP 8 MMOL/L (8-16); BILIRUBIN,TOTAL 0.8 mg/dL (0.2-1); BLOOD UREA NITROGEN 11.7 mg/dL (7-18); CALCIUM 8.9 mg/dL (8.5-10.1); CHLORIDE 107 mmol/L (98-107); CO2 23 mmol/L (21-32); CREATININE 0.6 mg/dL (0.55-1.3); GLUCOSE,RANDOM 107 mg/dL (74-106); POTASSIUM 4.1 mmol/L (3.5-5.1); SGOT/AST 66 U/L (15-37); SGPT/ALT 71 U/L (13-61); SODIUM 138 mmol/L (136-145); TOT PROT 7.6 g/dl (6.4-8.2)
[2019-08-21] MEDS ORDERED: MECLIZINE HCL 25 MG TABLET (FP) PO ONE (15:40)
[2019-08-21] MEDS ORDERED: MECLIZINE HCL 25 MG TABLET (FP) ONE (15:54)
[2019-08-21 16:16] VITALS: BP 119/69; PULSE 65; TEMP 97.4
--- NOTE | 2019-08-22 11:30 | EKG ---
Test Reason : Blood Pressure : / mmHG Vent. Rate : 070 BPM Atrial Rate : 070 BPM P-R Int : 130 ms QRS Dur : 072 ms QT Int : 404 ms P-R-T Axes : 023 033 037 degrees QTc Int : 436 ms NORMAL SINUS RHYTHM NORMAL ECG WHEN COMPARED WITH ECG OF 04-APR-2018 11:14, NO SIGNIFICANT CHANGE WAS FOUND Confirmed by Mazin Dela Cruz MD ([id number]) on 08/22/2019 11:29:54 AM Referred By: Confirmed By:Mazin Dela Cruz MD
== END 2019-08-21 17:05 | disposition home or self-care (01) ==
LOC: JER 13:17
PROC: 3E0333Z Introduction of Anti-inflammatory into Peripheral Vein, Percutaneous Approach (ICD-10-PCS; principal; 2019-08-21)
PROC: 3E033GC Introduction of Other Therapeutic Substance into Peripheral Vein, Percutaneous Approach (ICD-10-PCS; 2019-08-21)
PROC: 3E033GC Introduction of Other Therapeutic Substance into Peripheral Vein, Percutaneous Approach (ICD-10-PCS; 2019-08-21)
DX: G43.109 Migraine with aura, not intractable, without status migrainosus (principal); E03.9 Hypothyroidism, unspecified; E11.9 Type 2 diabetes mellitus without complications; Z79.84 Long term (current) use of oral hypoglycemic drugs
CPT/HCPCS: 36415; 80053; 82550; 84484; 85025; 93005; 93010; 99283-25; J7030